=== PATIENT | male | born 1985 | race Caucasian/White ===

== ENCOUNTER 2018-12-02 06:53 | Emergency (ER) | payer OTHER ==
[~2018-12-02] VITALS: Ht 180.3 cm; Wt 85.0 kg
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
[2018-12-02] MEDS ORDERED: ACETAMINOPHEN 325 MG TABLET PO ONE (07:00)
--- NOTE | 2018-12-02 07:00 | NUR ---
Provider to bedside for pt eval complete. pt to have visual acuity. Report to Jocelin RODRIGUES.
--- NOTE | 2018-12-02 07:20 | NUR ---
RECEIVED REPORT. VA'S DONE. PT IS FILLING OUT WORKER'S COMP PAPERWORK. ICE APPLIED TO LEFT EYE AREA. CALL LIGHT IS WITHIN REACH.
--- NOTE | 2018-12-02 07:49 | NUR ---
PT IS BACK FROM [place]. 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 PT IS CALM AND COOPERATIVE.
[2018-12-02] MEDS ORDERED: ACETAMINOPHEN 325 MG TABLET ONE (08:29)
[2018-12-02 09:26] VITALS: BP 136/96
--- NOTE | 2018-12-02 09:27 | NUR ---
D/C EPR MD. PT IS ALERT AND ORIENTED AND AMBULATORY WITHOUT ASSIST. VERBALIZED UNDERSTANDING OF D/C INSTRUCTIONS REGARDING APPT WITH [employer]. TOMORROW. FRIEND IS HERE TO SEE PT HOME.
== END 2018-12-02 09:29 | disposition home or self-care (01) ==
LOC: ED 09:00
DX: S02.32XA Fracture of orbital floor, left side, initial encounter for closed fracture (principal); Y04.2XXA Assault by strike against or bumped into by another person, initial encounter; Y93.89 Activity, other specified; Y92.59 Other trade areas as the place of occurrence of the external cause; Y99.0 Civilian activity done for income or pay
CPT/HCPCS: 70486; 99284

== ENCOUNTER 2019-06-24 21:27 | Emergency (ER) | payer OTHER ==
[~2019-06-24] VITALS: Ht 172.7 cm; Wt 95.8 kg
[2019-06-24 22:26] VITALS: BP 124/70
== END 2019-06-24 22:28 | disposition home or self-care (01) ==
LOC: ED 22:22
DX: K42.9 Umbilical hernia without obstruction or gangrene (principal)
CPT/HCPCS: 99281